=== PATIENT | female | born 1955 | race Caucasian/White ===

== ENCOUNTER → 2020-03-29 09:27 | Outpatient (CLI) | payer OTHER, SELFPAY ==
[2020-03-21 07:16] VITALS: BMI 22.3
--- NOTE | 2020-03-29 17:42 | PFTCOMP_ITS ---
COMPLETE PULMONARY FUNCTION TEST INTERPRETATION Brief HPI: Patient is a 65 year old female, currently under the care of myself, who presents to [facility] for complete pulmonary function tests secondary to diagnosis of cough. Respiratory therapist reports good effort and reproducible results. Interpretation: Forced expiration spirometry shows no large airways obstructive ventilatory defect with an FEV1 of 129% predicted. There is no significant bronchodilator response by strict ATS criteria. Spirograms are of good quality and plateau normally. The respiratory flow volume loop shows a normal pattern. Lung volumes by body plethysmography show a normal total lung capacity at 4.47 L, 110% predicted. All other lung volumes are within normal limits. Diffusion capacity by carbon monoxide is normal at 117% predicted. The airway resistance is normal. No previous pulmonary function tests were available for review. Impression: These pulmonary function tests are within normal limits
== END ==
PROVIDERS: PCP Family Medicine; Referring Provider Internal Medicine Critical Care Medicine; Visit Provider Internal Medicine Critical Care Medicine
DX: R05 Cough (principal)
CPT/HCPCS: 94060; 94726; 94729

== ENCOUNTER → 2020-10-26 10:34 | Outpatient (CLI) | payer OTHER, SELFPAY ==
[2020-10-17 08:48] VITALS: BMI 22.3
--- NOTE | 2020-10-26 10:38 | STE_ITS ---
Reason For Study: Chronic cough, Bradycardia Stress Results Protocol: Stress Echocardiogram-Kenny Protocol Maximum Predicted HR: 156 bpm Target HR: 133 bpm % Maximum Predicted HR: 94 % DurationHeart Rate Stage (mm:ss) (bpm) BP Comment Baseline 61 124/60no chest pain Stage 1 3:00 94 136/68no chest pain Stage 2 3:00 108 158/70no chest pain Stage 3 3:00 118 160/70no chest pain, mild shortness of breath Stage 4 1:00 146 / no chest pain, mild shortness of breath recovery 74 128/60shortness of breath resolved. no chest pain Stress Duration: 10:00 mm:ss Maximum Stress HR: 146 bpm Baseline Echocardiogram Findings Stress Echo Wall motion Data Resting WM Intermediate WM Stress WM ECHO/Stress Test Echo w/o Contrast Interpretation Summary Exercise stress echo 65-year-old lady with a history of bradycardia and cough. Stress EKG demonstrates normal sinus rhythm with a rate of 61 bpm normal interv als are noted. The patient exercised according to regular Kenny protocol for total duration of 10 minutes. Patient completed 1 minute into stage IV of the Kenny protocol the maximum heart rate a ttained 160 bpm which was 102% of maximum predicted heart rate the maximum workload was 13.3 metaboli c equivalents. At rest there were no ST or T wave changes noted suggest ischemia at peak exercise upsloping ST changes were noted which did not meet criteria for ischemia. No clinical angina was not ed the test was terminated due to leg fatigue. There was no evidence of chronotropic incompeten ce noted. Mild shortness of breath was noted at peak exercise. Stress echocardiogram. Resting echocardiogram demonstrated preserved ejection fraction at 60%. No wall motion abnormalities were noted. Stress echocardiographic images demonstrated thickening of all byrd and reduct ion of low ventricular cavity size and peaking of ejection fraction of 70% no wall motion abnormalities were noted. Conclusion: Exercise stress echo with no EKG or echocardiographic criteria noted for ischem ia at a high workload. Excellent functional capacity. No arrhythmias noted. Ordering Physician: Chapito Josue Referring Physician: Chapito Josue Performed By: Laura Ponce RDCS, RVT
== END ==
PROVIDERS: PCP Family Medicine; Referring Provider Internal Medicine Cardiovascular Disease; Visit Provider Internal Medicine Cardiovascular Disease
DX: R05 Cough (principal); R06.00 Dyspnea, unspecified; R06.02 Shortness of breath
CPT/HCPCS: 93017; 93350